=== PATIENT | female | born 1960 | race Caucasian/White ===

== ENCOUNTER 2017-05-26 15:59 | Emergency (ER) | payer MEDICARE ==
--- NOTE | 2017-05-26 16:39 | UC ---
Respiratory Complaint HPI - HPI Summary HPI Summary: 56 year old female with history of oxygen dependent COPD comes in with COPD exacerbation symptoms that are mild. "I can't breathe [since] yesterday. I'm going through withdrawals ... from Fentanyl." 1) Headache, bilateral ears "plugged", elevated temperature (tmax 99), facial pressure, "clear turning a little yellow" nasal congestion, PND, "scratch" throat, mostly non-productive cough, shortness of breath "can't breathe through my nose ... chest feels tight", diarrhea, myalgias, chills, and tired for one day. 2) Patient has been taken off of Fentanyl Patch over the last three weeks and last patch was removed seven days ago. Patient stated she has felt "very aggitated ... muscle spasms. I can't sleep" for three days. Patient is prescribed clonidine 0.1mg TID to help. Patient is disabled. PCP Kristine Wheeler. [ End ] - History of Current Complaint Chief Complaint: UCGeneralIllness Stated Complaint: COUGH/FENTANYL WITHDRAWL Time Seen by Provider: 05/26/17 16:24 Hx Obtained From: Patient, Family/Enamel Cracker Onset/Duration: Gradual Onset Timing: Constant Severity Initially: Mild Severity Currently: Moderate Character: Cough: Productive Aggravating Factors: Exertion Alleviating Factors: Bronchodilator Associated Signs And Symptoms: Positive: Wheezing, URI - Allergies/Home Medications Allergies/Adverse Reactions: Allergies Allergy/AdvReac Type Severity Reaction Status Date / Time Aspirin Allergy Severe Vomiting Verified 05/26/17 16:16 Penicillins Allergy Severe Rash Verified 05/26/17 16:16 Sulfamethoxazole Allergy Severe VOMITING , Verified 05/26/17 16:16 w/Trimethoprim ITCHING [From Bactrim] Amoxicillin Allergy Hives Verified 05/26/17 16:16 Conjugated Estrogens Allergy Hives Verified 05/26/17 16:16 [From Prempro] Medroxyprogesterone Allergy Hives Verified 05/26/17 16:16 [From Prempro] PRESCRIPTION STRENGH Allergy Intermediate Nausea And Uncoded 05/26/17 16:16 IBUPROPHEN Vomiting STRAWBERRIES Allergy Intermediate HIVES Uncoded 05/26/17 16:16 VOMITING Home Medications: Home Medications Benzonatate CAP* [Tessalon 100 MG CAP*] 100 - 200 mg PO TID PRN 05/26/17 [ History Confirmed 05/26/17] Docusate CAP* [Colace Cap*] 200 mg PO TID PRN 05/26/17 [History Confirmed ] Fluticasone-Salmeterol 250-50* [Advair Diskus 250-50*] 1 puff INH BID 05/26/17 [ History Confirmed 05/26/17] Ipratropium HFA INHALER(NF) [Atrovent Hfa Inhaler(NF)] 2 puff INH TID 05/26/17 [ History Confirmed 05/26/17] Montelukast Sodium TAB* [Singulair 10 MG TAB*] 10 mg PO BEDTIME 05/26/17 [ History Confirmed 05/26/17] Nystatin TOP POWDER* 1 applic TOPICAL BID PRN MDD \\ 05/26/17 [History Confirmed 05/26/17] Oxygen 3 DAILY 05/26/17 [History] cloNIDine TAB* [Catapres 0.1 MG TAB*] 0.1 mg PO TID PRN 05/26/17 [History Confirmed 05/26/17] guaiFENesin ER TAB [Mucinex*] 600 mg PO BID PRN 05/26/17 [History Confirmed 07/31] PMH/Surg Hx/FS Hx/Imm Hx Previously Healthy: Yes Respiratory History: COPD - Surgical History Surgical History: Yes Surgery Procedure, Year, and Place: 3 C SECTIONS, APPENDECTOMY, GALL BLADDER REMOVAL - Family History Known Family History: Positive: Cardiac Disease, Hypertension, Respiratory Disease - Social History Alcohol Use: Rare Substance Use Type: Marijuana Substance Use Comment - Amount & Last Used: Occasionally & 05/19/17 Smoking Status (MU): Heavy Every Day Tobacco Smoker Type: Cigarettes Amount Used/How Often: 1 PPD Length of Time of Smoking/Using Tobacco: Since Age 13 Household Exposure Type: Cigarettes - Immunization History Most Recent Influenza Vaccination: 05/20/17 Review of Systems Constitutional: Fatigue ENT: Nasal Discharge, Sinus Congestion Respiratory: Shortness Of Breath, Cough Is Patient Immunocompromised?: No All Other Systems Reviewed And Are Negative: Yes Physical Exam Triage Information Reviewed: Yes Appearance: Well-Appearing, No Pain Distress, Well-Nourished Vital Signs: Initial Vital Signs Temp 98.3 F 05/26/17 16:09 Pulse 76 05/26/17 16:09 Resp 18 10/12/17 16:09 BP 102/86 05/26/17 16:09 Pulse Ox 99 05/26/17 16:09 Vital Signs Reviewed: Yes Eye Exam: Normal ENT Exam: Normal Dental Exam: Normal Neck exam: Normal Neck: Positive: Supple, Nontender, No Lymphadenopathy Respiratory Exam: Normal Respiratory: Positive: Chest non-tender, No respiratory distress, No accessory muscle use. Negative: Respiratory distress, Decreased breath sounds, Accessory muscle use, Crackles, Rhonchi, Stridor Cardiovascular Exam: Normal Abdominal Exam: Normal Musculoskeletal Exam: Normal Neurological Exam: Normal Psychological Exam: Normal Skin Exam: Normal UC Diagnostic Evaluation - Laboratory O2 Sat by Pulse Oximetry: 99 Respiratory Course/Dx - Course Course Of Treatment: Mild COPD exacerbation -- oxygen not on and oxygen sat at 99%. After more discussion patient denies going through withdrawal symptoms of concern she is essentially here for her breathing and coughing. she is having difficulty breathing through her nose due to congestion -- offer different mask at this time. if sx persist or worsen or ANY concern for withdrawal she is aware to go to ED. of note on RA at 99% in office and speaking in complete sentences - Differential Dx/Diagnosis Differential Diagnosis/HQI/PQRI: Bronchitis Provider Diagnoses: COPD exacerbation mild Discharge - Discharge Plan Condition: Good Disposition: HOME Prescriptions: Doxycycline Hyclate [Morgidox [id number]] 100 mg PO BID #20 cap predniSONE TAB* [Deltasone TAB*] 10 mg PO DAILY #30 tab Patient Education Materials: COPD (Chronic Obstructive Pulmonary Disease) (ED) Referrals: Kristine Wheeler MD [Primary Care Provider] - 4 Days
[2017-05-26 16:51] VITALS: BP 102/86
== END 2017-05-26 16:53 | disposition home or self-care (01) ==
LOC: UCCORT 15:59
DX: J44.1 Chronic obstructive pulmonary disease with (acute) exacerbation (principal); Z88.6 Allergy status to analgesic agent; Z88.0 Allergy status to penicillin; Z88.2 Allergy status to sulfonamides
CPT/HCPCS: 99212; G0463

== ENCOUNTER 2018-05-31 17:13 | Emergency (ER) | payer MEDICARE ==
[2018-05-31 17:24] VITALS: BP 127/70
--- NOTE | 2018-05-31 18:48 | UC ---
Respiratory Complaint HPI - HPI Summary HPI Summary: The patient is a 57-year-old female who has COPD. She is currently on home O2 at 3 L via nasal cannula. She has had a one-week history of nasal congestion and occipital headache. She states that she is wheezing more than normal. She states that she had pneumonia about a month ago. She states that she was admitted to the hospital with lactic acidosis as a result of starting metformin. She is currently on insulin. She denies any fever or chills. He denies any chest pain. She states that the only antibiotic she can tolerate his Zithromax. - History of Current Complaint Chief Complaint: UCRespiratory Stated Complaint: DIFFICULTY BREATHING Time Seen by Provider: 05/31/18 18:41 Hx Obtained From: Patient Onset/Duration: Gradual Onset, Lasting Days Timing: Constant Severity Initially: Mild Severity Currently: Moderate Pain Intensity: 7 Pain Scale Used: 0-10 Numeric Character: Cough: Productive Aggravating Factors: Exertion Alleviating Factors: Bronchodilator Associated Signs And Symptoms: Positive: Wheezing, Nasal Congestion, Sinus Discomfort - Allergies/Home Medications Allergies/Adverse Reactions: Allergies Allergy/AdvReac Type Severity Reaction Status Date / Time amoxicillin Allergy Hives Verified 05/31/18 17:33 aspirin Allergy Vomiting Verified 05/31/18 17:33 estrogens, conjugated Allergy Hives Verified 05/31/18 17:33 [From Prempro] medroxyprogesterone Allergy Hives Verified 05/31/18 17:33 [From Prempro] Penicillins Allergy Rash Verified 05/31/18 17:33 sulfamethoxazole Allergy Vomiting Verified 05/31/18 17:33 [From Bactrim] trimethoprim [From Bactrim] Allergy Vomiting Verified 05/31/18 17:33 PRESCRIPTION STRENGH Allergy Intermediate Nausea And Uncoded 05/26/17 16:16 IBUPROPHEN Vomiting STRAWBERRIES Allergy Intermediate HIVES Uncoded 05/26/17 16:16 VOMITING Home Medications: Home Medications Insulin GLARGINE(*) [Lantus(*)] 10 units SUBCUT ONCE 05/31/18 [History Confirmed 05/31/18] PMH/Surg Hx/FS Hx/Imm Hx Previously Healthy: No Endocrine History: Diabetes, Dyslipidemia Cardiovascular History: Hypertension Respiratory History: COPD, Bronchitis, Pneumonia - Surgical History Surgical History: Yes Surgery Procedure, Year, and Place: 3 C SECTIONS, APPENDECTOMY, GALL BLADDER REMOVAL. KNEE SURGERY - Family History Known Family History: Positive: Cardiac Disease, Hypertension, Respiratory Disease - Social History Alcohol Use: Rare Substance Use Type: Marijuana Substance Use Comment - Amount & Last Used: rare Smoking Status (MU): Current Every Day Smoker Type: Cigarettes Amount Used/How Often: 1/2 PPD Length of Time of Smoking/Using Tobacco: ~ 40 years Household Exposure Type: Cigarettes - Immunization History Most Recent Influenza Vaccination: [id number] Review of Systems Constitutional: Negative Skin: Negative Eyes: Negative ENT: Nasal Discharge, Sinus Congestion, Sinus Pain/Tenderness Respiratory: Cough Cardiovascular: Negative Gastrointestinal: Negative Genitourinary: Negative Motor: Negative Neurovascular: Negative Musculoskeletal: Negative Neurological: Negative Psychological: Negative Is Patient Immunocompromised?: No All Other Systems Reviewed And Are Negative: Yes Physical Exam Triage Information Reviewed: Yes Appearance: Well-Appearing, No Pain Distress, Well-Nourished Vital Signs: Initial Vital Signs Temp 97.9 F 05/31/18 17:18 Pulse 104 05/31/18 17:18 Resp 28 05/31/18 17:18 BP 127/70 05/31/18 17:18 Pulse Ox 98 05/31/18 17:18 Vital Signs Reviewed: Yes Eyes: Positive: Conjunctiva Clear ENT: Positive: Hearing grossly normal, Nasal congestion, TMs normal, Sinus tenderness - Rifht >left. Negative: Normal ENT inspection, Nasal drainage, Tonsillar swelling, Tonsillar exudate, Trismus, Muffled voice, Dental tenderness Neck: Positive: Supple, Nontender, No Lymphadenopathy Respiratory: Positive: Normal breath sounds, No respiratory distress, No accessory muscle use, Wheezing Cardiovascular: Positive: RRR, No Murmur Musculoskeletal: Positive: ROM Intact, No Edema Neurological: Positive: Alert Psychological Exam: Normal Diagnostic Evaluation - Laboratory O2 Sat by Pulse Oximetry: 98 Re-Evaluation - Re-Evaluation First Eval Re-Evaluation Time: 19:15 Change: Improved Comment: lungs clear Respiratory Course/Dx - Course Course Of Treatment: pt refuses to start on prednisone - Differential Dx/Diagnosis Provider Diagnoses: acute sinusitis. bronchospasm Discharge - Sign-Out/Discharge Documenting (check all that apply): Patient Departure All imaging exams completed and their final reports reviewed: No Studies - Discharge Plan Condition: Stable Disposition: HOME Prescriptions: Azithromycin TAB* [Zithromax TAB*] 250 mg PO DAILY #6 tab Patient Education Materials: Sinusitis (ED), Bronchospasm (ED) Referrals: VERITO Ferrari [Primary Care Provider] - 2 Days - Billing Disposition and Condition Condition: STABLE Disposition: Home
[2018-05-31] MEDS: Albuterol 2.5 MG/3 ML NEB.SOL* (0.083%) INH ONE (18:54)
[2018-05-31] MEDS: Ipratropium 0.5MG/2.5ML NEB* 0.5 MG/2.5 ML NEB.SOLN INH ONE (18:54)
== END 2018-05-31 19:34 | disposition home or self-care (01) ==
LOC: UCCORT 17:13
DX: J01.90 Acute sinusitis, unspecified (principal); J98.01 Acute bronchospasm; J44.9 Chronic obstructive pulmonary disease, unspecified; E11.9 Type 2 diabetes mellitus without complications; I10 Essential (primary) hypertension; E78.5 Hyperlipidemia, unspecified; F17.210 Nicotine dependence, cigarettes, uncomplicated; F12.90 Cannabis use, unspecified, uncomplicated; Z88.0 Allergy status to penicillin; Z88.1 Allergy status to other antibiotic agents; Z79.4 Long term (current) use of insulin; Z88.6 Allergy status to analgesic agent; Z99.81 Dependence on supplemental oxygen; Z88.8 Allergy status to other drugs, medicaments and biological substances; Z91.018 Allergy to other foods
CPT/HCPCS: 99212; G0463